=== PATIENT | male | born 1955 | race Caucasian/White ===

== ENCOUNTER 2018-06-18 11:47 | Emergency (ER) | payer OTHER ==
[~2018-06-18] VITALS: Ht 172.7 cm; Wt 75.0 kg
[~2018-06-18 11:47] MED LIST: ALDACTONE25 MG PO; ASPIR-LOW81 MG PO; Aldactone PO; Aspirin E.C. PO; BUPROPION XL300 MG PO; BUSPAR10 MG PO; Buspar PO; CYCLOBENZAPR TAB 10M; CYMBALTA60 MG PO; DULOXETINE HCL60 MG PO; FLEXERIL10 MG; FOLIC ACID1 MG PO; FUROSEMIDE40 MG PO; Flexeril PO; GABAPENTIN300 MG PO; GABAPENTIN600 MG PO; GLIPIZIDE XL10 MG PO; Glucophage PO; Glucotrol PO; HYDROCODON-ACE1 EAC7 PO; Habitrol,Nicoderm CQ TD; K-DUR20 MEQ PO; K-Dur PO; LANTUS 3 M100 UNITS1 SC; LEVEMIR FL100 UNIT/1 SC; LEVEMIR100 UNIT/2 SC; LEVOTHROID112 MCG PO; LEVOTHYROXINE100 MCG PO; LEVOTHYROXINE112 MCG PO; LOSARTAN POTAS100 MG PO; Lasix PO; Levothroid,Synthroid PO; MELOXICAM15 MG PO; METFORMIN HCL1000 M1 PO; METFORMIN HCL1000 MG PO; MOBIC15 MG PO; Maalox, Mylanta PO; NEURONTIN600 MG PO; NOVOLOG PE100 UNITS/ SC; Neurontin PO; OMNICEF300 MG PO; PERCOCET 5/31 TABLET PO; Percocet 5/325,Endoc PO; SPIRONOLACTONE25 MG PO; THERAGRAN1 TABLET PO; TRAMADOL HCL50 MG PO; TYLENOL REGULA325 MG PO; Theragran PO; Ultram PO; VITAMIN B-1100 MG PO; WELLBUTRIN XL300 MG PO; Wellbutrin PO; Wellbutrin XL PO
[2018-06-18 12:20] LABS: HEMATOCRIT 44.1 % (38.0-50.0); HEMOGLOBIN 15.1 G/DL (12.5-16.6); MCH 32.8 PG (29.0-34.0); MCHC 34.2 G/DL (30.0-36.0); MCV 95.9 FL (86-99); PLATELET COUNT 217 K/uL (156-360); RBC DIS.WIDTH-CV 14.9 % (11.8-14.6); RBC DIS.WIDTH-SD 52.3 % (39-53); WHITE BLOOD COUNT 7.8 K/uL (4.1-10.2)
[2018-06-18 12:30] LABS: CHLORIDE 108 mEq/L (99-109); POTASSIUM 4.4 mEq/L (3.7-5.4); SODIUM 139 mEq/L (136-147)
[2018-06-18 12:32] LABS: GLUCOSE 244 mg/dL (70-99)
[2018-06-18 12:36] LABS: CREATININE 1.7 mg/dL (0.6-1.3); GFR ESTIMATE (CALCULATED) 44 mL/min/ (58.99-99999)
[2018-06-18 12:37] LABS: UREA NITROGEN (BUN) 23 mg/dL (9-23)
[2018-06-18] MEDS ORDERED: VENTOLIN HFA18 GM IH (13:38)
[2018-06-18] MEDS ORDERED: PREDNISONE50 MG PO (13:40)
[2018-06-18 14:24] VITALS: BP 135/89
== END 2018-06-18 14:26 | disposition home or self-care (01) ==
LOC: EME 11:47
PROVIDERS: Emergency Medicine
DX: J40 Bronchitis, not specified as acute or chronic (principal); Z77.098 Contact with and (suspected) exposure to other hazardous, chiefly nonmedicinal, chemicals; F17.210 Nicotine dependence, cigarettes, uncomplicated; E11.9 Type 2 diabetes mellitus without complications; Z79.84 Long term (current) use of oral hypoglycemic drugs; E03.9 Hypothyroidism, unspecified; F41.9 Anxiety disorder, unspecified; K74.60 Unspecified cirrhosis of liver; Z88.6 Allergy status to analgesic agent
CPT/HCPCS: 71045; 80048; 85027; 93005; 94640; 94799; J2930; J7030

== ENCOUNTER 2018-06-22 09:18 | Emergency (ER) | payer OTHER ==
[~2018-06-22] VITALS: Ht 167.6 cm; Wt 70.5 kg
[~2018-06-22 09:18] MED LIST changes: +PREDNISONE50 MG PO; +VENTOLIN HFA18 GM IH
[2018-06-22] MEDS ORDERED: BENADRYL25 MG PO (10:36)
[2018-06-22 11:11] VITALS: BP 156/109
== END 2018-06-22 11:10 | disposition home or self-care (01) ==
LOC: EME 09:18
DX: J44.1 Chronic obstructive pulmonary disease with (acute) exacerbation (principal); T14.8XXA Other injury of unspecified body region, initial encounter; W57.XXXA Bitten or stung by nonvenomous insect and other nonvenomous arthropods, initial encounter; Y92.009 Unspecified place in unspecified non-institutional (private) residence as the place of occurrence of the external cause; Z91.19 Patient's noncompliance with other medical treatment and regimen; E11.9 Type 2 diabetes mellitus without complications; Z79.84 Long term (current) use of oral hypoglycemic drugs; F17.200 Nicotine dependence, unspecified, uncomplicated
CPT/HCPCS: 94640; 99281; 99284; J8540

== ENCOUNTER 2018-06-25 14:14 | Inpatient (IN) | payer OTHER ==
[~2018-06-25] VITALS: Ht 165.1 cm; Wt 76.3 kg
[~2018-06-25 14:14] MED LIST changes: +BENADRYL25 MG PO
[2018-06-25 15:10] LABS: BASOPHIL (%) 0.8 % (0-1); BASOPHIL COUNT 0.1 K/uL (0-0.1); EOSINOPHIL (%) 2.7 % (0-5); EOSINOPHIL COUNT 0.2 K/uL (0-0.3); HEMATOCRIT 44.5 % (38.0-50.0); HEMOGLOBIN 15.3 G/DL (12.5-16.6); IMMATURE GRANULOCYTE (%) 0.8 % (0.0-0.7); LYMPHOCYTE (%) 15.7 % (15-42); LYMPHOCYTE COUNT 1.2 K/uL (1.0-2.8); MCHC 34.4 G/DL (30.0-36.0); MCV 95.9 FL (86-99); MONOCYTE (%) 9.6 % (3-12); MONOCYTE COUNT 0.7 K/uL (0-0.8); NEUTROPHIL (%) 70.4 % (45-76); NEUTROPHIL COUNT 5.2 K/uL (1.8-6.4); PLATELET COUNT 207 K/uL (156-360); RBC DIS.WIDTH-CV 14.9 % (11.8-14.6); RBC DIS.WIDTH-SD 52.5 % (39-53); RED BLOOD COUNT 4.64 M/uL (4.00-5.50); WHITE BLOOD COUNT 7.4 K/uL (4.1-10.2)
[2018-06-25 15:19] LABS: CHLORIDE 108 mEq/L (99-109); POTASSIUM 4.5 mEq/L (3.7-5.4); SODIUM 139 mEq/L (136-147)
[2018-06-25 15:20] LABS: GLUCOSE 238 mg/dL (70-99)
[2018-06-25 15:24] LABS: CREATININE 1.6 mg/dL (0.6-1.3); GFR ESTIMATE (CALCULATED) 47 mL/min/ (58.99-99999)
[2018-06-25 15:25] LABS: UREA NITROGEN (BUN) 25 mg/dL (9-23)
[2018-06-25 15:32] LABS: TROP-I INTERPRETATION NEGATIVE; TROPONIN-I 0.03 ng/mL (0.0-0.30)
[2018-06-25] MEDS ORDERED: BUSPAR5 MG PO (16:31)
[2018-06-25] MEDS ORDERED: GLUCOPHAGE500 MG PO (16:32)
[2018-06-26] VITALS (7 sets, daily range): BP systolic 123–152; BP diastolic 71–86
[2018-06-26 05:52] LABS: BASOPHIL (%) 0.5 % (0-1); BASOPHIL COUNT 0.1 K/uL (0-0.1); EOSINOPHIL (%) 0.7 % (0-5); EOSINOPHIL COUNT 0.1 K/uL (0-0.3); HEMATOCRIT 47.1 % (38.0-50.0); HEMOGLOBIN 15.7 G/DL (12.5-16.6); IMMATURE GRANULOCYTE (%) 0.9 % (0.0-0.7); LYMPHOCYTE (%) 6.2 % (15-42); LYMPHOCYTE COUNT 0.6 K/uL (1.0-2.8); MCHC 33.3 G/DL (30.0-36.0); MCV 96.1 FL (86-99); MONOCYTE (%) 1.8 % (3-12); MONOCYTE COUNT 0.2 K/uL (0-0.8); NEUTROPHIL (%) 89.9 % (45-76); NEUTROPHIL COUNT 8.5 K/uL (1.8-6.4); PLATELET COUNT 218 K/uL (156-360); RBC DIS.WIDTH-CV 14.9 % (11.8-14.6); RBC DIS.WIDTH-SD 53.1 % (39-53); WHITE BLOOD COUNT 9.5 K/uL (4.1-10.2)
[2018-06-26 06:11] LABS: APPEARANCE CLEAR ((CLEAR)); BILIRUBIN NEGATIVE; BLOOD SMALL; COLOR YELLOW ((YELLOW)); GLUCOSE (STRIP) >=500; KETONES 5; LEUKOCYTES NEGATIVE; NITRITE NEGATIVE; PROTEIN (STRIP) >=500; SPECIFIC GRAVITY 1.016 (1.000-1.030); UROBILINOGEN 0.2 MG/DL (0.2-1.0)
[2018-06-26 06:18] LABS: CHLORIDE 105 MEQ/L (99-109); CREATININE 1.3 MG/DL (0.6-1.3); GFR ESTIMATE (CALCULATED) > 59 mL/min/ (58.99-99999); GLUCOSE 214 mg/dL (70-99); POTASSIUM 4.4 MEQ/L (3.7-5.4); SODIUM 138 MEQ/L (136-147); UREA NITROGEN (BUN) 25 mg/dL (9-23)
[2018-06-26 06:28] LABS: BACTERIA NONE SEEN /HPF; EPITHELIAL CELLS NONE SEEN /HPF; HYALINE CASTS 0-5 /LPF; MUCUS TRACE /LPF; RED BLOOD CELLS 15-20 /HPF (0-5); UCUL ADDED? NO; WHITE BLOOD CELLS 0-5 /HPF (0-5)
[2018-06-27 04:06] VITALS: BP 146/81
[2018-06-27 05:37] LABS: HEMOGLOBIN 14.6 G/DL (12.5-16.6); MCH 32.4 PG (29.0-34.0); MCV 95.3 FL (86-99); PLATELET COUNT 222 K/uL (156-360); RBC DIS.WIDTH-CV 14.6 % (11.8-14.6); RBC DIS.WIDTH-SD 51.6 % (39-53); RED BLOOD COUNT 4.51 M/uL (4.00-5.50); WHITE BLOOD COUNT 9.3 K/uL (4.1-10.2)
[2018-06-27 06:05] LABS: ALBUMIN 2.6 G/DL (3.2-4.8); ALKALINE PHOSPHATASE 94 IU/L (3-129); ALT (GPT) 7 IU/L (3-49); AST (GOT) 9 IU/L (2-34); CHLORIDE 105 MEQ/L (99-109); CREATININE 1.7 MG/DL (0.6-1.3); GFR ESTIMATE (CALCULATED) 44 mL/min/ (58.99-99999); POTASSIUM 4.9 MEQ/L (3.7-5.4); SODIUM 136 MEQ/L (136-147); TOTAL BILIRUBIN 0.4 MG/DL (0.0-1.0); TOTAL PROTEIN 5.1 G/DL (6.4-8.3); UREA NITROGEN (BUN) 36 mg/dL (9-23)
[2018-06-27 06:06] LABS: GLUCOSE 336 mg/dL (70-99)
[2018-06-27 07:43] VITALS: BP 108/58
[2018-06-27 11:18] VITALS: BP 108/66
[2018-06-27 16:01] VITALS: BP 109/67
[2018-06-27 21:00] VITALS: BP 146/72
[2018-06-28] VITALS (7 sets, daily range): BP systolic 98–138; BP diastolic 58–93
[2018-06-28 11:07] LABS: CHLORIDE 101 MEQ/L (99-109); CREATININE 1.8 MG/DL (0.6-1.3); GFR ESTIMATE (CALCULATED) 41 mL/min/ (58.99-99999); POTASSIUM 5.2 MEQ/L (3.7-5.4); SODIUM 133 MEQ/L (136-147); UREA NITROGEN (BUN) 43 mg/dL (9-23)
[2018-06-28 11:11] LABS: GLUCOSE 425 mg/dL (70-99)
[2018-06-29 03:55] VITALS: BP 136/81
[2018-06-29 06:22] LABS: CHLORIDE 101 MEQ/L (99-109); CREATININE 1.9 MG/DL (0.6-1.3); GFR ESTIMATE (CALCULATED) 38 mL/min/ (58.99-99999); POTASSIUM 5.3 MEQ/L (3.7-5.4); SODIUM 134 MEQ/L (136-147); UREA NITROGEN (BUN) 45 mg/dL (9-23)
[2018-06-29 06:39] LABS: GLUCOSE 409 mg/dL (70-99)
[2018-06-29 07:34] LABS: C DIFF TOXIN NEGATIVE (NEGATIVE)
[2018-06-29 08:01] VITALS: BP 129/68
[2018-06-29 11:35] VITALS: BP 124/67
[2018-06-29 15:26] LABS: GLUCOSE 380 mg/dL (70-99)
[2018-06-29 15:59] VITALS: BP 117/53
[2018-06-29 20:26] VITALS: BP 129/75
[2018-06-29 23:36] VITALS: BP 137/82
[2018-06-30 04:48] VITALS: BP 136/76
[2018-06-30 08:18] VITALS: BP 143/79
[2018-06-30 08:46] LABS: BASOPHIL (%) 0.3 % (0-1); EOSINOPHIL (%) 0 % (0-5); HEMATOCRIT 48.3 % (38.0-50.0); IMMATURE GRANULOCYTE (%) 0.8 % (0.0-0.7); LYMPHOCYTE (%) 6.7 % (15-42); LYMPHOCYTE COUNT 0.8 K/uL (1.0-2.8); MCH 32.7 PG (29.0-34.0); MCHC 33.1 G/DL (30.0-36.0); MCV 98.8 FL (86-99); MONOCYTE (%) 7.7 % (3-12); MONOCYTE COUNT 0.9 K/uL (0-0.8); NEUTROPHIL (%) 84.5 % (45-76); PLATELET COUNT 223 K/uL (156-360); RBC DIS.WIDTH-CV 14.6 % (11.8-14.6); RBC DIS.WIDTH-SD 53.9 % (39-53); RED BLOOD COUNT 4.89 M/uL (4.00-5.50); WHITE BLOOD COUNT 11.9 K/uL (4.1-10.2)
[2018-06-30 09:05] LABS: ALBUMIN 2.8 G/DL (3.2-4.8); ALKALINE PHOSPHATASE 86 IU/L (3-129); ALT (GPT) 17 IU/L (3-49); AST (GOT) 18 IU/L (2-34); CHLORIDE 104 MEQ/L (99-109); CREATININE 1.9 MG/DL (0.6-1.3); GFR ESTIMATE (CALCULATED) 38 mL/min/ (58.99-99999); GLUCOSE 288 mg/dL (70-99); POTASSIUM 4.9 MEQ/L (3.7-5.4); SODIUM 135 MEQ/L (136-147); TOTAL BILIRUBIN 0.3 MG/DL (0.0-1.0); TOTAL PROTEIN 5.1 G/DL (6.4-8.3); UREA NITROGEN (BUN) 46 mg/dL (9-23)
[2018-06-30 11:59] VITALS: BP 151/85
[2018-06-30 15:27] VITALS: BP 120/89
[2018-06-30 19:09] VITALS: BP 125/71
[2018-06-30 21:37] VITALS: BP 137/86
[2018-06-30 22:13] LABS: CHLORIDE 107 mEq/L (99-109); POTASSIUM 4.5 mEq/L (3.7-5.4); SODIUM 134 mEq/L (136-147)
[2018-06-30 22:14] LABS: GLUCOSE 336 mg/dL (70-99)
[2018-06-30 22:18] LABS: CREATININE 2.1 mg/dL (0.6-1.3); GFR ESTIMATE (CALCULATED) 34 mL/min/ (58.99-99999)
[2018-06-30 22:19] LABS: UREA NITROGEN (BUN) 51 mg/dL (9-23)
[2018-06-30 22:26] LABS: TROP-I INTERPRETATION NEGATIVE; TROPONIN-I 0.02 ng/mL (0.0-0.30)
[2018-07-01 03:00] VITALS: BP 126/73
[2018-07-01 07:06] LABS: TROP-I INTERPRETATION NEGATIVE; TROPONIN-I 0.03 ng/mL (0.0-0.30)
[2018-07-01 07:14] LABS: CHLORIDE 107 MEQ/L (99-109); CREATININE 1.6 MG/DL (0.6-1.3); GFR ESTIMATE (CALCULATED) 47 mL/min/ (58.99-99999); GLUCOSE 146 mg/dL (70-99); POTASSIUM 4.5 MEQ/L (3.7-5.4); SODIUM 136 MEQ/L (136-147); UREA NITROGEN (BUN) 47 mg/dL (9-23)
[2018-07-01 07:17] VITALS: BP 119/80
[2018-07-01 11:18] VITALS: BP 120/68
[2018-07-01] MEDS ORDERED: AMOX TR-K CLV1 EAC4 PO (12:30)
[2018-07-01] MEDS ORDERED: DUONEB 2.5-0.5 M3 ML AEROSOL ×2 (12:31→12:32)
[2018-07-01] MEDS ORDERED: NICOTINE PATCH1 EAC1 TD (12:32)
[2018-07-01] MEDS ORDERED: ENTRESTO 24 MG1 EACH PO (12:33)
[2018-07-01] MEDS ORDERED: ELIQUIS5 MG PO (12:33)
[2018-07-01] MEDS ORDERED: TYLENOL REGULA325 MG PO (12:34)
[2018-07-01] MEDS ORDERED: PREDNISONE20 MG PO (12:35)
[2018-07-01] MEDS ORDERED: NOVOLOG 10100 UNITS/ SC (12:35)
[2018-07-01] MEDS ORDERED: LEVEMIR100 UNIT/2 SC ×2 (12:36)
[2018-07-01] MEDS ORDERED: GLIPIZIDE5 MG PO (12:36)
[2018-07-01] MEDS ORDERED: METOPROLOL TA37.5 MG PO (12:46)
== END 2018-07-01 14:50 | DRG 193 ==
LOC: EME 14:14 → EDOF 19:30 → 4EAST 19:30 → ENRESERV 19:50 → 4EAST 23:50
PROVIDERS: Emergency Medicine; Internal Medicine
DX: J18.9 Pneumonia, unspecified organism (principal); J44.1 Chronic obstructive pulmonary disease with (acute) exacerbation; J44.0 Chronic obstructive pulmonary disease with (acute) lower respiratory infection; J84.89 Other specified interstitial pulmonary diseases; I48.92 Unspecified atrial flutter; N17.9 Acute kidney failure, unspecified; I50.21 Acute systolic (congestive) heart failure; I13.0 Hypertensive heart and chronic kidney disease with heart failure and stage 1 through stage 4 chronic kidney disease, or unspecified chronic kidney disease; N18.9 Chronic kidney disease, unspecified; I42.0 Dilated cardiomyopathy; E86.0 Dehydration; I48.91 Unspecified atrial fibrillation; E11.22 Type 2 diabetes mellitus with diabetic chronic kidney disease; R15.9 Full incontinence of feces; T14.8XXA Other injury of unspecified body region, initial encounter; W57.XXXA Bitten or stung by nonvenomous insect and other nonvenomous arthropods, initial encounter; F10.10 Alcohol abuse, uncomplicated; E03.9 Hypothyroidism, unspecified; F17.210 Nicotine dependence, cigarettes, uncomplicated; F41.9 Anxiety disorder, unspecified; G89.29 Other chronic pain; M54.9 Dorsalgia, unspecified; J98.11 Atelectasis; R32 Unspecified urinary incontinence; E66.9 Obesity, unspecified; Z68.31 Body mass index [BMI] 31.0-31.9, adult; F32.9 Major depressive disorder, single episode, unspecified; R91.1 Solitary pulmonary nodule
CPT/HCPCS: 71045; 71046; 71250; 74176; 80048; 80048 91; 80053; 81003; 82948; 84484; 84999; 85025; 85027; 87040; 87070; 87205; 87493; 93005; 93306; 94640; 94760; 94799; 97530 GO; 97530 GP; 99281; 99284; 99285; J0295; J0456; J0696; J1644; J1815; J1940; J2920; J7030; J7050; J7512; J8540